=== PATIENT | female | born 1995 | race Caucasian/White ===

== ENCOUNTER 2016-09-09 15:07 | Emergency (ER) | payer OTHER ==
[~2016-09-09] VITALS: Ht 175.3 cm; Wt 108.9 kg
[~2016-09-09 15:07] MED LIST: ONDA4TAB5
[2016-09-09 16:53] LABS: Albumin 3.3 g/dL (3.4-5.0); BUN/Creatinine Ratio 10.8; Calcium 8.8 mg/dL (8.5-10.1)
[2016-09-09 16:56] LABS: Bilirubin, Total 0.5 mg/dL (0.2-1.0)
[2016-09-09 17:10] LABS: Basophils # (auto) 0 uL; Basophils % (auto) 0.4 % (0.0-2.0); Eosinophils # (auto) 0.4 uL; Eosinophils % (auto) 6.2 % (0.0-7.0); Hematocrit 44.6 % (36.0-46.0); Hemoglobin 14.9 g/dL (12.2-16.2); Lymphocytes # (auto) 2.4 uL; Lymphocytes % (auto) 34.3 % (10.0-50.0); Mean Corpuscular Hemoglobin 30.2 pg (28.0-32.0); Mean Corpuscular Hgb Conc. 33.5 g/dL (32.0-36.0); Mean Corpuscular Volume 90.3 fL (80.0-100.0); Mean Platelet Volume 8.4 fL (7.4-10.4); Monocytes # (auto) 0.8 uL; Neutrophils # (auto) 3.3 uL; Neutrophils % (auto) 48.1 % (37.0-80.0); Platelet Count (auto) 302 10^3/uL (140-450); White Blood Cell 6.9 10^3/uL (4.4-10.8)
[2016-09-09] MEDS ORDERED: ASPirin 325 MG TAB PO ONE (19:15)
[2016-09-09] MEDS ORDERED: ALUM & MAG HYDROX-SIMETH LIQ(MAALOX) 30 ML PO ONE (19:15)
[2016-09-09] MEDS ORDERED: DONNATAL 5ml ORAL Elix (BELLADONNA ALK-PHENOBARB) PO ONE (19:15)
[2016-09-09] MEDS ORDERED: LIDOCAINE VISCOUS 2% 15ML UD PO ONE (19:15)
[2016-09-09 19:40] VITALS: BP 119/69
== END 2016-09-09 21:05 | disposition home or self-care (01) ==
LOC: ER 15:15
DX: R07.89 Other chest pain (principal); K29.70 Gastritis, unspecified, without bleeding; Z88.6 Allergy status to analgesic agent
CPT/HCPCS: 36415; 71020; 80053; 84484; 85025; 85049; 93005